=== PATIENT | female | born 1950 | race Hispanic/Latino ===

== ENCOUNTER 2022-06-08 14:56 | Emergency (ER) | payer MEDICARE ==
[~2022-06-08] VITALS: Ht 154.9 cm; Wt 94.3 kg
[2022-06-08 15:31] LABS: BASOPHILS # (AUTO) 0.1 (0.0-0.1); BASOPHILS % 0.4 % (0.0-1.0); EOSINOPHILS # (AUTO) 0.3 (0.0-0.4); EOSINOPHILS % 2.1 % (0.0-6.0); HEMATOCRIT 39.2 % (34.2-44.1); LYMPHOCYTES # (AUTO) 2.7 (1.0-3.2); LYMPHOCYTES % 23.1 % (18.0-39.1); MEAN CORPUSCULAR HEMOGLOBIN 27.4 pg (28-32); MEAN CORPUSCULAR HGB CONC 33.2 g/dL (31-35); MEAN CORPUSCULAR VOLUME 82.7 fL (81-99); MONOCYTES # (AUTO) 0.8 (0.2-0.8); MONOCYTES % 6.7 % (4.4-11.3); NEUTROPHILS # (AUTO) 7.9 (2.1-6.9); NEUTROPHILS % 67.3 % (38.7-80.0); PLATELET COUNT 231 x10e3/uL (140-360); RED BLOOD COUNT 4.74 x10e6/uL (3.6-5.1); RED CELL DISTRIBUTION WIDTH 13.7 % (11.7-14.4)
[2022-06-08 15:49] LABS: ALBUMIN 3.9 g/dL (3.5-5.0); ANION GAP 18.1 mmol/L (8-16); CALCIUM 8.9 mg/dL (8.4-10.2); CLARITY,URINE CLEAR (CLEAR); COLOR,URINE AMBER (YELLOW); CREATININE, SERUM 0.79 mg/dL (0.57-1.11); KETONES,URINE TRACE (NEGATIVE); LEUKOCYTE ESTERASE ,URINE TRACE (NEGATIVE); NITRITE,URINE POSITIVE (NEGATIVE); POTASSIUM 4.1 mmol/L (3.5-5.1); PROTEIN,URINE DIPSTICK TRACE (NEGATIVE); URINE UROBILINOGEN 1 mg/dL (0.2 - 1)
[2022-06-08 16:00] LABS: BACTERIA,URINE MANY /HPF
[2022-06-08 16:01] LABS: EPITHELIAL CELLS,URINE FEW /LPF; URIC ACID CRYSTALS,URINE FEW (FEW)
[2022-06-08] MEDS ORDERED: CEPHALEXIN500 MG PO (18:36)
[2022-06-08 18:43] VITALS: BP 171/93
== END 2022-06-08 18:39 | disposition home or self-care (01) ==
LOC: ER 15:13
DX: M54.50 Low back pain, unspecified (principal); N39.0 Urinary tract infection, site not specified; I10 Essential (primary) hypertension
CPT/HCPCS: 36415; 74176; 80053; 81001; 85025; 87086; 87186; 99284